=== PATIENT | female | born 1985 | race Caucasian/White ===

== ENCOUNTER 2020-03-05 02:01 | Emergency (ER) | payer OTHER, SELFPAY ==
[2020-03-05 02:03] VITALS: BP 141/89; PULSE 69; RESP 16; TEMP 36.4; O2SAT 95; BMI 41.9
--- NOTE | 2020-03-05 02:29 | ED.VIS.GEN ---
History of Present Illness Chief Complaint: Laceration Informant: Patient Narrative: Patient is a 34-year-old previously female who presents to the emergency department for laceration to left palm. She states that she was cutting an avocado whenever the knife slipped. Bleeding controlled prior to arrival in the emergency department. Laceration is 2.5 cm. She denies any loss of sensation in the fingers. No decreased range of motion of the fingers. She is not sure the last time she got a tetanus shot. She denies any other injury. No known aggravating or relieving factors. She currently rates the pain as moderate. She is not on any blood thinning medications. Past Medical History - Allergies and Home Meds Allergies/Adverse Reactions: Allergies No Known Allergies Allergy (Verified 03/05/20 02:02) Primary Care Physician: Pallavi Brand NP-C [Primary Care Provider] - 7 Days for suture removal Prior records reviewed: Yes Past Medical History: None Surgical History: no surgical history Smoking Status: Never smoker Review of Systems All systems negative except as indicated General: Denies: Chills, Fever Cardiovascular: Denies: Chest pain Respiratory: Denies: Dyspnea Gastrointestinal: Denies: Nausea, Vomiting Musculoskeletal: Denies: Swelling Skin: Reports: Wounds Neurological: Denies: Headache Hematologic: Denies: Easy bruising, Easy bleeding Physical Exam Vital Signs/Narrative: Vital Signs Temp Pulse Resp BP Pulse Ox 03/05/20 02:03 97.5 F L 69 16 141/89 H 95 General: Well nourished, Well developed Head: Normocephalic, Atraumatic Eyes: Perrl, EOMI ENT: Moist mucous membranes Neck: Supple Cardiovascular: Regular rate Respiratory: No distress Abdomen: Nondistended Extremities: No edema, - - Full range of motion of digits, wrist. Sensation intact of all fingers. 2+ radial pulse. Skin: Normal color, No rash, - - 2 cm linear laceration to palm of left hand. Mild venous oozing present. No FB appreciated. Neurological: Alert, Normal Strength, Normal Sensation Psychological: Normal affect, Normal Mood Diagnostic/Tx/Re-eval - Medical Decision Making Patient presents to the emergency department for laceration to left palm. This will require suture repair given the location as Steri-Strips would likely come off. Patient updated on tetanus here in the emergency department. Patient otherwise neurovascularly intact. No foreign bodies appreciated. She needs to have the sutures removed in 7 to 10 days. She is to monitor for evidence of infection. She understands and is agreeable this plan. Will discharge home in stable condition. Procedures Procedure(s): Laceration repair: Informed consent was obtained before procedure started. The appropriate timeout was taken. The area was prepped and draped in the usual sterile fashion. Local anesthesia was achieved using 2cc of lidocaine 1% without epinephrine. The wound was copiously irrigated. 2 5-0 Ethilon simple interrupted sutures were placed. A dressing was applied to the area and anticipatory guidance, as well as standard post procedure care, was explained. Return precautions are given. The patient tolerated the procedure well without any apparent complications. Follow-up visit set for suture removal and evaluation of laceration. ED Disposition - Plan for ED Patient: Disposition: Home or Assisted Living Diagnosis: Laceration of palm Instructions: ED Laceration All Closures Referrals: Pallavi Brand, [facility] [Primary Care Provider] - 7 Days for suture removal
== END 2020-03-05 03:13 | disposition home or self-care (01) ==
PROVIDERS: Emergency Provider Emergency Medicine; PCP Nurse Practitioner Family
DX: S61.412A Laceration without foreign body of left hand, initial encounter (principal); W26.0XXA Contact with knife, initial encounter; Y93.9 Activity, unspecified; Y92.9 Unspecified place or not applicable
CPT/HCPCS: 12001; 99282

== ENCOUNTER 2020-05-25 16:33 | Emergency (ER) | payer MEDICAID, SELFPAY ==
[2020-05-25 16:34] VITALS: PULSE 89; RESP 17; TEMP 35.7; O2SAT 97; BMI 41.0
[2020-05-25 16:37] VITALS: BP 170/104
[2020-05-25 17:25] LABS: Mucous, Urine 0 SEEN /hpf (<or=2+)
[2020-05-25 17:33] LABS: Color, Urine Amber (Yellow); Glucose, Dipstick Normal (Normal); Ketone-Dipstick 5 mg/dl (Negative); Leukocyte Esterase-Dipstick 25 /ul (Negative); Nitrite-Dipstick Negative (Negative); Occult Blood-Urine 250 /ul (Negative); Protein-Dipstick 100 mg/dl (Negative); Urine Clarity Cloudy (Clear); Urine Urobilinogen 1 mg/dl (Normal)
--- NOTE | 2020-05-25 17:34 | CT_ITS ---
STUDY: CT ABDOMEN AND PELVIS WITHOUT CONTRAST REASON FOR EXAM: Female, 34 years old. Right flank pain radiating into the groin. RADIATION DOSAGE (If Supplied By Facility): CTDIvol = ( 14.80 ) mGy, DLP = ( 800.05 ) mGycm TECHNIQUE: Transaxial images were obtained from the dome of the diaphragm to the symphysis pubis without oral contrast, and without intravenous contrast. Sagittal and coronal images were reconstructed. Individualized dose optimization techniques were used for this CT. COMPARISON: None. FINDINGS: The visualized lung bases are unremarkable. The visualized portions of the heart are within normal limits. Normal liver. Normal gallbladder and extrahepatic biliary system. Normal spleen. Normal pancreas. Normal bilateral adrenal glands. The right kidney is of normal size and cortical thickness. No renal calculi. There is mild hydronephrosis and ureterectasis to the UVJ where there is a 0.3 cm calculus (image 175, series 1002). Normal left kidney. Normal left ureter. Normal visualized stomach. Normal small intestine. Normal colon. The appendix is visualized and appears normal. Normal abdominal aorta. Normal inferior vena cava. Normal retroperitoneum. Normal urinary bladder. Normal uterus and ovaries. There is no pelvic lymphadenopathy. No free air or free fluid is seen within the peritoneal cavity. Normal abdominal wall. Normal osseous structures. CT/Abdomen/Pelvis without Cont IMPRESSION: 1. Right UVJ calculus with mild obstructive uropathy. 2. Otherwise normal CT of the abdomen and pelvis. Electronically Signed: Horacio Macedo DO at 19:38 EDT Tel [phone], Service support ,
[2020-05-25 17:36] LABS: Urine Bilirubin Dipstick 1 mg/dL (Negative)
--- NOTE | 2020-05-25 17:36 | ED.DCSUM_ITS ---
History of Present Illness Chief Complaint: Flank Pain Informant: Patient Onset: Today Context: Sudden Onset Timing: Continuous Current Severity: Moderate Maximum Severity: Severe Narrative: The patient is a 34-year-old female is otherwise healthy the presents to the emergency department with right-sided flank pain. She states her pain started gradually at about 2:00 today. She states that it acutely worsened and migrated to her right lower quadrant. She was nauseated and felt like she was going to vomit. She states she is never had pain like this before. She has no significant medical history. She is not on any medications. She states she is currently on her menses, but denies any history of kidney stone. She states she is otherwise been in her normal state of health. Prior similar symptoms: No Recent Illness/Hospitalization: No Past Medical History - Allergies and Home Meds Allergies/Adverse Reactions: Allergies No Known Allergies Allergy (Verified 05/25/20 16:33) Primary Care Physician: Pallavi Brand NP, [facility]-C [Primary Care Provider] - Prior records reviewed: Yes Past Medical History: None Surgical History: no surgical history Smoking Status: Never smoker Review of Systems General: Denies: Chills, Fever, Sweats Eyes: Denies: Visual changes - bilaterally, Diplopia ENT: Denies: Rhinorrhea, Sore throat Cardiovascular: Denies: Chest pain, Palpitations Respiratory: Denies: Dyspnea, Cough, Dyspnea on exertion Gastrointestinal: Reports: Nausea. Denies: Abdominal pain, Vomiting, Diarrhea, Melena, Hematochezia Genitourinary: Denies: Dysuria, Hematuria, Frequency Musculoskeletal: Reports: Back pain. Denies: Extremity Pain Skin: Denies: Rash, Wounds Neurological: Denies: Headache, Weakness, Numbness Physical Exam Vital Signs/Narrative: Vital Signs Temp Pulse Resp BP Pulse Ox 05/25/20 16:37 170/104 H 05/25/20 16:34 96.2 F L 89 17 97 Inital Vital Signs reviewed: Yes General: Well nourished, Well developed, No Acute Distress Head: Normocephalic, Atraumatic Eyes: Perrl, EOMI ENT: Moist mucous membranes, No rhinorrhea Neck: Supple, Nontender Cardiovascular: Regular rate, Regular rhythm, No murmurs Respiratory: No distress, CTA bilaterally, Chest nontender Abdomen: Soft, Nontender, Nondistended, Normal bowel sounds Back: Nontender, Normal Inspection Extremities: Nontender, No edema Skin: Normal color, No rash Neurological: Alert, Oriented x3, Cranial nerves II-XII grossly intact, Normal Strength, Normal Sensation Psychological: Normal affect, Normal Mood Diagnostic/Tx/Re-eval Clinical Impression(s) from Imaging Studies Abdomen/Pelvis CT 05/25/20 17:34 IMPRESSION: 1. Right UVJ calculus with mild obstructive uropathy. 2. Otherwise normal CT of the abdomen and pelvis. Electronically Signed: Horacio MacedoDO at 19:38 EDT Tel [phone], Service support , Abnormal Lab Results 05/25/20 05/25/20 05/25/20 17:17 17:17 18:06 WBC 17.7 H RBC 4.76 Hgb 14.3 Hct 42.6 MCV 89.5 MCH 30.0 MCHC 33.6 RDW Std Deviation 40.7 RDW Coeff of Prasad 12.4 Plt Count 310 MPV 10.6 Immature Gran % (Auto) 0.500 Neut % (Auto) 86.8 H Lymph % (Auto) 8.3 L [place] % (Auto) 4.1 Eos % (Auto) 0.1 Baso % (Auto) 0.2 Absolute Neuts (auto) 15.4 H Absolute Lymphs (auto) 1.48 Nucleated RBC % 0 Sodium Potassium Chloride Carbon Dioxide Anion Gap BUN Creatinine Estim Creat Clear Calc Est GFR (MDRD) Af Amer Est GFR (MDRD) Non-Af BUN/Creatinine Ratio Glucose Calcium Urine Color Rupal Urine Clarity Cloudy Urine pH 5.0 Ur Specific [place] 1.030 Urine Protein 100 H Urine Glucose (UA) Normal Urine Ketones 5 H Urine Occult Blood 250 H Urine Nitrite Negative Urine Bilirubin 1 H Urine Urobilinogen 1 H Ur Leukocyte Esterase 25 H Urine RBC 25-50 SEEN Urine WBC 25-50 SEEN Ur Squamous Epith Cells 10-25 SEEN Calcium Oxalate Crystal 1+ Urine Bacteria 2+ Urine Mucus 0 SEEN Urine Test Negative 05/25/20 18:06 WBC RBC Hgb Hct MCV MCH MCHC RDW Std Deviation RDW Coeff of Prasad Plt Count MPV Immature Gran % (Auto) Neut % (Auto) Lymph % (Auto) [place] % (Auto) Eos % (Auto) Baso % (Auto) Absolute Neuts (auto) Absolute Lymphs (auto) Nucleated RBC % Sodium 139 Potassium 3.5 Chloride 105 Carbon Dioxide 26.0 Anion Gap 8 BUN 19 H Creatinine 0.94 Estim Creat Clear Calc 82.78 Est GFR (MDRD) Af Amer 87 Est GFR (MDRD) Non-Af 72 BUN/Creatinine Ratio 20.1 H Glucose 148 H Calcium 9.7 Urine Color Urine Clarity Urine pH Ur Specific Maryneal Urine Protein Urine Glucose (UA) Urine Ketones Urine Occult Blood Urine Nitrite Urine Bilirubin Urine Urobilinogen Ur Leukocyte Esterase Urine RBC Urine WBC Ur Squamous Epith Cells Calcium Oxalate Crystal Urine Bacteria Urine Mucus Urine Test - Medical Decision Making Patient presents with sudden onset right flank pain that is migrated to her left lower quadrant. IV was established. She was given IV fluids, Toradol, and Zofran. She had total resolution of her pain. Urine does show some blood with some white blood cells. Culture was added. Screen labs do show mild leukocytosis which I feel is likely reactive. CT shows a 3 mm stone at the right UVJ versus already in the bladder. Reevaluation, the patient is totally pain-free. I will treat her with Keflex due to concern for cystitis. She will be given a short course of analgesics and antiemetics. At this point, I do feel that she is safe for outpatient therapy. She is comfortable with this plan of care. Impression 1. 3 mm right UVJ stone ED Disposition - Plan for ED Patient: Instructions: ED Renal Stone w Colic Prescriptions: Cephalexin [Keflex] 500 mg PO Q6 #40 cap Prescription Printed Hydrocodone Bitart/Apap 5-325 [[place] 5MG-325MG] 1 tab PO Q6H PRN PRN 3 Days #10 tab PRN Reason: Pain Prescription Printed Ondansetron [Zofran Odt] 4 mg PO Q8H PRN PRN #10 tab PRN Reason: Nausea Prescription Printed Referrals: Pallavi Brand [facility], [facility] [Primary Care Provider] -
[2020-05-25 17:45] LABS: Red Blood Cells-Urine 25-50 SEEN /hpf (0-5); Squamous Epithelial Cells - UA 10-25 SEEN /hpf (5-10); White Blood Cells 25-50 SEEN /hpf (0-5)
[2020-05-25 17:46] LABS: Bacteria 2+ /hpf (None Seen); Calcium Oxalate Crystals Ur 1+ /hpf (<or=2+)
[2020-05-25] MEDS: 0.9% Normal Saline 1,000 ML 250 ML IV (18:04)
[2020-05-25] MEDS: Ketorolac 15 MG/ML Vial IV (18:04)
[2020-05-25] MEDS: Ondansetron 4 MG/2 ML Vial IV (18:04)
[2020-05-25 18:24] LABS: Absolute Lymphocyte Count 1.48 X10^3/uL (0.83-4.51); Absolute Neutrophil Count 15.4 X10^3/uL (2.0-7.7); Basophil# 0.04 X10^3/uL; Basophil% 0.2 % (0-1); Eosinophil# 0.01 X10^3/uL; Eosinophils% 0.1 % (0-5); Hematocrit 42.6 % (37-47); Hemoglobin 14.3 g/dL (12.0-15.0); Lymphocyte # 1.48 X10^3/ul (4.0); Lymphocyte % 8.3 % (19-41); Mean Corp Hgb Conc 33.6 g/dL (32-36); Mean Corpuscular Volume 89.5 fL (81-99); Mean Platelet Vol. 10.6 fl (6.2-12.0); Monocyte# 0.72 X10^3/uL; Monocyte% 4.1 % (0-10); NRBC Flagged by Analyzer 0 % (0-5); Neutrophil % 86.8 % (47-70); Platelet Count 310 K/mm3 (150-450); RBC Distribution Width CV 12.4 % (11.6-14.6); RBC Distribution Width SD 40.7 fl (35.1-43.9); Red Blood Count 4.76 M/mm3 (4.2-5.4); White Blood Count 17.7 K/mm3 (4.4-11.0)
[2020-05-25 18:33] VITALS: BP 152/78; PULSE 90; RESP 18; O2SAT 98
[2020-05-25 18:47] LABS: Anion Gap 8 (5-15); BUN 19 mg/dL (7-18); BUN/Creat Ratio 20.1 RATIO (10-20); Calcium,Total 9.7 mg/dL (8.5-10.1); Chloride 105 mmol/L (98-107); Creatinine, Serum 0.94 mg/dL (0.55-1.02); EST Glomerular Filtration Rate 72 mL/min (>60); Est Glom Filt Rate - Afr Amer 87 mL/min (>60); Estimated Creatinine Clearance 82.78 ml/min; Glucose 148 mg/dL (74-106); Potassium 3.5 mmol/L (3.5-5.1); Sodium Level 139 mmol/L (136-145)
[2020-05-25 18:51] LABS: Internal QC Validated? YES +Cl - CLEAR BKGD; Pregnancy, Urine Negative Negative
[2020-05-25] MEDS: Cephalexin 250 MG Capsule 500 MG PO (20:00)
== END 2020-05-25 20:04 | disposition home or self-care (01) ==
PROVIDERS: Emergency Provider Emergency Medicine; PCP Nurse Practitioner Family
DX: N13.2 Hydronephrosis with renal and ureteral calculous obstruction (principal)
CPT/HCPCS: 74176; 80048; 81001; 81025; 85025; 87086; 87088; 96361; 96374; 96375; 99285; J7030; A4216; J2405